=== PATIENT | female | born 1995 | race African-American/Black ===

== ENCOUNTER 2021-07-14 00:30 | Observation (INO) | payer OTHER ==
[~2021-07-14] VITALS: Ht 167.6 cm; Wt 82.1 kg
[2021-07-14] MEDS ORDERED: PREN-96 PO (01:29)
== END 2021-07-14 01:27 | disposition home or self-care (01) ==
LOC: LDRP 00:30
PROVIDERS: ADMIT Obstetrics & Gynecology; ATTEND Obstetrics & Gynecology
DX: O62.9 Abnormality of forces of labor, unspecified (principal); Z20.822 Contact with and (suspected) exposure to COVID-19; Z3A.40 40 weeks gestation of pregnancy
CPT/HCPCS: 59025; 81002; G0378; G0379

== ENCOUNTER 2021-07-14 03:47 | Inpatient (IN) | payer OTHER ==
[~2021-07-14] VITALS: Ht 30.5 cm; Wt 0.5 kg
[~2021-07-14 03:47] MED LIST: PREN-96 PO
[2021-07-14] MEDS ORDERED: BUTORPHANOL TARTRATE 2 MG/1 ML VIAL IV PRN ×2 (04:15)
[2021-07-14] MEDS ORDERED: LACT. RINGERS/OXYTOCIN 20UNITS 500 ML IV ONE ×2 (04:15→04:45)
[2021-07-14] MEDS ORDERED: LIDOCAINE 2%HCL (LOCAL ANESTH.) INJ 20ML MDV IJ PRN (04:15)
[2021-07-14] MEDS ORDERED: PROMETHAZINE HCL 25 MG/ML 1ML IV PRN (04:15)
[2021-07-14] MEDS ORDERED: PHISODERM TOP SOLN 240ML BTL TOP PRN (04:15)
[2021-07-14] MEDS: LACTATED RINGER'S 1,000 ML IV SCH ×3 (04:26→07:07)
[2021-07-14] MEDS: WITCH HAZEL-GLYCERIN PAD TOP PRN (04:28)
[2021-07-14] MEDS: DERMOPLAST 60ML BOTTLE TOP PRN (04:28)
[2021-07-14 04:54] LABS: Basophils # (auto) 0 10 ^3/uL (0-0.2); Basophils % (auto) 0.3 % (0.0-2.0); Eosinophils # (auto) 0 10 ^3/uL (0-0.8); Eosinophils % (auto) 0.2 % (0.0-7.0); Hematocrit 37.6 % (36.0-46.0); Hemoglobin 12.6 g/dL (12.2-16.2); Lymphocytes # (auto) 1.4 10 ^3/uL (0.4-5.4); Mean Corpuscular Hemoglobin 29.1 pg (28.0-32.0); Mean Corpuscular Hgb Conc. 33.4 g/dL (32.0-36.0); Mean Corpuscular Volume 87.2 fL (80.0-100.0); Monocytes # (auto) 0.8 10 ^3/uL (0-1.3); Monocytes % (auto) 6.6 % (0.0-12.0); Neutrophils # (auto) 9.3 10 ^3/uL (1.6-8.6); Neutrophils % (auto) 80.9 % (37.0-80.0); Nucleated Red Blood Cells % 0.2 %; Red Blood Cells 4.32 10^6/uL (4.0-5.20); Red Cell Distribution Width 16.2 % (11.8-14.3); White Blood Cell 11.5 10^3/uL (4.4-10.8)
[2021-07-14 05:11] LABS: INR 0.93 (0.9-1.15); Partial Thromboplastin Time 25.8 sec (23.6-33.0)
[2021-07-14 05:15] LABS: Urine Bacteria FEW /hpf (None Seen); Urine Blood TRACE /uL (Negative); Urine Mucus FEW (None Seen); Urine Specific Gravity 1.022 (1.001-1.035); Urine WBC 29 /hpf (0 - 5)
[2021-07-14 05:26] LABS: Alcohol, Urine < 3.0 mg/dL (0-10); Amphetamine Screen, Urine NEGATIVE (NEGATIVE); Barbiturate Scree,Urine NEGATIVE (NEGATIVE); Benzodiazephine Screen, Urine NEGATIVE (NEGATIVE); Cannabinoid Screen, Urine NEGATIVE (NEGATIVE); Cocaine Screen, Urine NEGATIVE (NEGATIVE); Opiate Scree,Urine NEGATIVE (NEGATIVE); Phencyclidine Screen, Urine NEGATIVE (NEGATIVE)
[2021-07-14 05:26] LABS: Albumin 2.5 g/dL (3.4-5.0); Calcium 8.6 mg/dL (8.5-10.1); Potassium 3.7 mmol/L (3.5-5.1)
[2021-07-14 05:30] LABS: BUN/Creatinine Ratio 10.7; Bilirubin, Total 0.4 mg/dL (0.2-1.0); Total Protein 6.6 g/dL (6.4-8.2)
[2021-07-14] MEDS ORDERED: ePHEDrine SULFATE 50 MG/ML AMP IV ONE (07:15)
[2021-07-14] MEDS ORDERED: fentaNYL CITRATE 100 MCG/2 ML VL IV ONE (07:15)
[2021-07-14] MEDS ORDERED: LIDOCAINE HCL 2 %PF INJ 10ML AMP IJ ONE (07:15)
[2021-07-14] MEDS ORDERED: ROPIVACAINE HCL 200 ML EPI SCH ×2 (07:15→07:45)
[2021-07-14] MEDS ORDERED: ceFAZolin 1GM/50ML 50 ML IV ONE (09:00)
[2021-07-14] MEDS ORDERED: METHYLERGONOVINE MALEATE 0.2 MG/ML AMP IM ONE ×2 (11:54→11:55)
[2021-07-14] MEDS ORDERED: miSOPROStol 100 mcg TAB ONE (12:03)
[2021-07-14] MEDS ORDERED: miSOPROStol 100 mcg TAB PR ONE (12:45)
[2021-07-14] MEDS ORDERED: miSOPROStol 100 mcg TAB SL ONE (12:45)
[2021-07-14] MEDS: IBUPROFEN 600 MG TAB PO PRN ×3 (13:03→23:20)
[2021-07-14 13:50] VITALS: BP 135/62
[2021-07-14] MEDS: ACETAMINOPHEN 325 MG TAB PO PRN ×2 (14:15→19:56)
[2021-07-14 14:58] VITALS: BP 127/77
[2021-07-14 19:10] VITALS: BP 115/56
[2021-07-14] MEDS: ceFAZolin 1GM/50ML 50 ML IV SCH (19:56)
[2021-07-14 23:18] VITALS: BP 111/58
[2021-07-15 02:36] VITALS: BP 114/60
[2021-07-15] MEDS: ceFAZolin 1GM/50ML 50 ML IV SCH ×3 (03:58→20:19)
[2021-07-15] MEDS: IBUPROFEN 600 MG TAB PO PRN ×4 (04:14→22:53)
[2021-07-15 07:06] VITALS: BP 115/62
[2021-07-15] MEDS: ACETAMINOPHEN 325 MG TAB PO PRN ×2 (07:50→12:30)
[2021-07-15] MEDS: DERMOPLAST 60ML BOTTLE TOP PRN (09:42)
[2021-07-15] MEDS: WITCH HAZEL-GLYCERIN PAD TOP PRN (09:42)
[2021-07-15] MEDS ORDERED: DOCUSATE CALCIUM 240 MG CAP PO SCH (10:00)
[2021-07-15 10:31] VITALS: BP 111/53
[2021-07-15 15:30] VITALS: BP 104/60
[2021-07-15 19:00] VITALS: BP 97/52
[2021-07-15 23:00] VITALS: BP 124/74
[2021-07-16 02:55] VITALS: BP 120/71
[2021-07-16] MEDS: ceFAZolin 1GM/50ML 50 ML IV SCH (04:55)
[2021-07-16 06:06] LABS: RPR Non Reactive (Non Reactive)
[2021-07-16 07:05] VITALS: BP 124/78
[2021-07-16] MEDS: IBUPROFEN 600 MG TAB PO PRN (07:20)
== END 2021-07-16 09:40 | disposition home or self-care (01) | DRG 560 ==
LOC: LDRP 03:47 → OBSVTOIN 04:01 → LDRP 04:47
PROVIDERS: ADMIT Obstetrics & Gynecology; ATTEND Obstetrics & Gynecology
PROC: 10E0XZZ Delivery of Products of Conception, External Approach (ICD-10-PCS; principal; 2021-07-14)
PROC: 10907ZC Drainage of Amniotic Fluid, Therapeutic from Products of Conception, Via Natural or Artificial Opening (ICD-10-PCS; 2021-07-14)
PROC: 0W8NXZZ Division of Female Perineum, External Approach (ICD-10-PCS; 2021-07-14)
PROC: 3E0R3BZ Introduction of Anesthetic Agent into Spinal Canal, Percutaneous Approach (ICD-10-PCS; 2021-07-14)
PROC: 00HU33Z Insertion of Infusion Device into Spinal Canal, Percutaneous Approach (ICD-10-PCS; 2021-07-14)
PROC: 0KQM0ZZ Repair Perineum Muscle, Open Approach (ICD-10-PCS; 2021-07-14)
DX: O70.1 Second degree perineal laceration during delivery (principal); Z37.0 Single live birth; Z20.822 Contact with and (suspected) exposure to COVID-19; Z3A.40 40 weeks gestation of pregnancy
CPT/HCPCS: 36415; 59025; 59409; 62282; 76805; 80053; 80307; 81001; 85025; 85610; 85730; 86592; 86850; 86900; 86901; 87426; 94760; 96360; 96361; 96365; 96366; 96372; 96374; 96375; G0378; J0690; J2590